=== PATIENT | male | born 1995 | race Two or more races ===

== ENCOUNTER 2016-04-07 17:26 | Emergency (ER) | payer OTHER ==
--- NOTE | 2016-04-07 18:48 | RAD ---
Exam: Three-view right ankle COMPARISON: None INDICATION: Lateral swelling and bruising. FINDINGS: AP, lateral and oblique views of the right ankle obtained. Pronounced soft tissue swelling is seen over the lateral aspect of the ankle. There is a nondisplaced distal right fibular fracture at the level of physeal scar. This does extend into the ankle joint. No additional fracture is identified. Ankle mortise is intact. IMPRESSION: Nondisplaced distal right fibular fracture.
[2016-04-07] MEDS ORDERED: OXYCODONE/ACETAMINOPHEN 5/325 MG TABLET ONE (19:25)
== END 2016-04-07 19:41 | disposition home or self-care (01) ==
LOC: ED 17:26
DX: S82.401A Unspecified fracture of shaft of right fibula, initial encounter for closed fracture (principal); X58.XXXA Exposure to other specified factors, initial encounter; Y92.9 Unspecified place or not applicable
CPT/HCPCS: 73610; 99283; 99284; A9270